=== PATIENT | male | born 1965 | race Caucasian/White ===

== ENCOUNTER 2021-07-06 19:53 | Emergency (ER) | payer BC ==
[2021-07-06] MEDS ORDERED: Zofran 4 MG/2 ML VIAL IV ONE (20:18)
[2021-07-06] MEDS ORDERED: Sodium Chloride 0.9% 1000 ML 1,000 ML IV STA (20:18)
[2021-07-06] MEDS ORDERED: TORAdol 30 mg Injection IV ONE (20:18)
[2021-07-06] MEDS ORDERED: Sodium Chloride 0.9% 1000 ML 1,000 ML ONE (20:21)
[2021-07-06] MEDS ORDERED: TORAdol 30 mg Injection ONE (20:21)
[2021-07-06] MEDS ORDERED: Zofran 4 MG/2 ML VIAL ONE (20:21)
--- NOTE | 2021-07-06 20:22 | ERPHSYRPT ---
- History of Present Illness Time Seen by Provider: 07/06/21 20:03 Historian: patient Exam Limitations: no limitations Patient Subjective Stated Complaint: "My side hurts real bad." Triage Nursing Assessment: Patient reported a two day onset of right sided flank pain that radiates to the RLQ. He reported noting blood in his urine earlier today 07/06/21. Patient reported past history of kidney stones. Reported one episode of vomiting when the pain was at its worst prior to coming to the ED. Denied fever at home. Last oral intake was at 1230 on 07/06/21 when he had [employer] for lunch. Since then, he has had two beers and "a lot of water.". Sym metrical chest expansion. Heart tones S1/S2 RRR without extra sounds. Lungs vesicular with adequate airflow and no adventitious sounds. Abdomen obese non- distended with bowel sounds present in all quadrants. No CVA tenderness. peripheral pulses +3 bilateral. Physician History: 56 years old male with history of hypertension, kidney stones presented in the ER with chief complaint of right flank pain with radiation to right lower quadrant/groin, constant, moderate to severe intensity sharp nature with associated hematuria, nausea and vomiting times once. No fever or chills reported. Timing/Duration: day(s) (2), constant, gradual onset, worse Activities at Onset: rest Quality: sharpness Abdominal Pain Onset Location: RLQ, flank Pain Radiation: groin Severity of Pain-Max: severe Severity of Pain-Current: moderate Modifying Factors: Worsens With: movement, urinating Associated Symptoms: nausea, vomiting, No fever/chills Previous symptoms: same symptoms as today Allergies/Adverse Reactions: No Known Drug Allergies Allergy (Unverified 07/06/21 20:02) Home Medications: Escitalopram Oxalate 20 mg PO DAILY 07/06/21 [History] Trazodone HCl 100 mg PO DAILY 07/06/21 [History] Hx Tetanus, Diphtheria Vaccination/Date Given: No Hx Influenza Vaccination/Date Given: Yes Hx Pneumococcal Vaccination/Date Given: No Travel Risk - International Travel Have you traveled outside of the country in past 3 weeks: No - Coronavirus Screening Are you exhibiting any of the following symptoms?: No Close contact with a COVID-19 positive Pt in past 14-21 Days: No - Vaccine Status Have you recieved a Covid-19 vaccination: Yes Physical Meteorologist: Moderna - Vaccination Dates Date of 2cond Vaccination (if applicable): 12/2020 - Review of Systems Constitutional: No Symptoms Eyes: No Symptoms Ears, Nose, & Throat: No Symptoms Respiratory: No Symptoms Cardiac: No Symptoms Abdominal/Gastrointestinal: Abdominal Pain, Nausea, Vomiting Genitourinary Symptoms: Hematuria Musculoskeletal: No Symptoms Skin: No Symptoms Neurological: No Symptoms Psychological: No Symptoms Endocrine: No Symptoms Hematologic/Lymphatic: No Symptoms - Past Medical History Pertinent Past Medical History: Yes Cardiac History: Hypertension Psycho-Social History: Anxiety - Past Surgical History Past Surgical History: Yes Gastrointestinal: Hemorrhoidectomy - Social History Smoking Status: Never smoker Exposure to second hand smoke: No Drug Use: none Patient Lives Alone: No - Nursing Vital Signs Nursing Vital Signs: Initial Vital Signs Pulse Rate 72 07/06/21 19:53 Respiratory Rate 16 07/06/21 19:53 Blood Pressure 150/110 07/06/21 19:53 O2 Sat by Pulse Oximetry 99 07/06/21 19:53 Pain Scale Pain Intensity 9 - Physical Exam General Appearance: no apparent distress, alert Eye Exam: PERRL/EOMI, eyes nml inspection Ears, Nose, Throat Exam: normal ENT inspection Neck Exam: normal inspection, supple, full range of motion Respiratory Exam: normal breath sounds, lungs clear Cardiovascular Exam: regular rate/rhythm, normal heart sounds Gastrointestinal/Abdomen Exam: soft, normal bowel sounds, tenderness (Right flank/right lower quadrant), No guarding Back Exam: normal inspection, normal range of motion Extremity Exam: normal inspection, normal range of motion Neurologic Exam: alert, oriented x 3, cooperative Skin Exam: normal color SpO2 Interpretation: normal SpO2: 99 O2 Delivery: Room Air Ordered Tests: Active Orders 24 hr Category Date Time Status IV Insertion STAT Care 07/06/21 20:18 Active NPO (ED) STAT Care 07/06/21 20:18 Active ABDOMEN AND PELVIS W/0 CONTRAS [CT] Stat Exams 07/06/21 20:18 Taken CBC W DIFF Stat Lab 07/06/21 20:25 Completed CMP Stat Lab 07/06/21 20:25 Completed LIPASE Stat Lab 07/06/21 20:25 Completed UA W/RFX UR CULTURE Stat Lab 07/06/21 20:21 Completed Medication Summary Discontinued Medications Generic Name Dose Route Start Last Admin Trade Name Freq PRN Reason Stop Dose Admin Hydromorphone HCl 0.5 mg 07/06/21 21:09 07/06/21 21:12 Hydromorphone 1 Mg/1ml Inj 1 Mg/Ml Syringe IV 07/06/21 21:10 0.5 mg STAT ONE Administration Hydromorphone HCl Confirm 07/06/21 21:12 Hydromorphone 1 Mg/1ml Inj 1 Mg/Ml Syringe Administered 07/06/21 21:13 Dose 1 mg .ROUTE .STK-MED ONE Sodium Chloride 1,000 mls @ 999 mls/hr 07/06/21 20:18 07/06/21 20:23 Sodium Chloride 0.9% 1000 Ml IV 07/06/21 21:18 999 mls/hr .Q1H1M STA Administration Sodium Chloride Confirm 07/06/21 20:21 Sodium Chloride 0.9% 1000 Ml Administered 07/06/21 20:22 Dose 1,000 mls @ ud .ROUTE .STK-MED ONE Ketorolac Tromethamine 30 mg 07/06/21 20:18 07/06/21 20:23 Ketorolac Tromethamine 30 Mg/Ml Inj IV 07/06/21 20:19 30 mg STAT ONE Administration Ketorolac Tromethamine Confirm 07/06/21 20:21 Ketorolac Tromethamine 30 Mg/Ml Inj Administered 07/06/21 20:22 Dose 30 mg .ROUTE .STK-MED ONE Ondansetron HCl 4 mg 07/06/21 20:18 07/06/21 20:23 Ondansetron Hcl 4 Mg/2 Ml Vial IV 07/06/21 20:19 4 mg STAT ONE Administration Ondansetron HCl Confirm 07/06/21 20:21 Ondansetron Hcl 4 Mg/2 Ml Vial Administered 07/06/21 20:22 Dose 4 mg .ROUTE .STK-MED ONE Lab/Rad Data: Laboratory Result Diagrams 07/06/21 20:25 07/06/21 20:25 Laboratory Results 07/06/21 07/06/21 07/06/21 Range/Units 20:25 20:25 20:21 WBC 10.4 (4.0-10.5) K/mm3 RBC 5.11 (4.1-5.6) M/mm3 Hgb 16.9 (12.5-18.0) gm/dl Hct 49.2 (42-50) % MCV 96.3 (78-100) fl MCH 33.1 H (26-32) pg MCHC 34.3 (32-36) g/dl RDW 14.5 H (11.5-14.0) % Plt Count 214 (150-450) K/mm3 MPV 9.2 (7.5-11.0) fl Gran % 44.7 (36.0-66.0) % Eos # (Auto) 0.13 (0-0.5) Absolute Lymphs (auto) 4.79 H (1.0-4.6) Absolute Monos (auto) 0.78 (0.0-1.3) Lymphocytes % 46.3 H (24.0-44.0) % Monocytes % 7.5 (0.0-12.0) % Eosinophils % 1.3 (0.00-5.0) % Basophils % 0.2 (0.0-0.4) % Absolute Granulocytes 4.63 (1.4-6.9) Basophils # 0.02 (0-0.4) Sodium 137 (137-145) mmol/L Potassium 4.3 (3.5-5.1) mmol/L Chloride 104 (98-107) mmol/L Carbon Dioxide 21 L (22-30) mmol/L Anion Gap 16.5 H (5-15) MEQ/L BUN 8 L (9-20) mg/dL Creatinine 0.80 (0.66-1.25) mg/dL Estimated GFR > 60.0 ML/MIN Glucose 96 (74-106) mg/dL Calcium 9.0 (8.4-10.2) mg/dL Total Bilirubin 0.60 (0.2-1.3) mg/dL AST 38 (17-59) U/L ALT 27 (0-50) U/L Alkaline Phosphatase 69 (38-126) U/L Serum Total Protein 8.0 (6.3-8.2) g/dL Albumin 4.5 (3.5-5.0) g/dL Lipase 98 (23-300) U/L Urine Color STRAW (YELLOW) Urine Appearance CLEAR (CLEAR) Urine pH 7.0 (5-6) Ur Specific [place] 1.002 (1.005-1.025) Urine Protein NEGATIVE (Negative) Urine Ketones NEGATIVE (NEGATIVE) Urine Blood NEGATIVE (0-5) Tyler/ul Urine Nitrite NEGATIVE (NEGATIVE) Urine Bilirubin NEGATIVE (NEGATIVE) Urine Urobilinogen NEGATIVE (0-1) mg/dL Ur Leukocyte Esterase NEGATIVE (NEGATIVE) Urine WBC (Auto) NONE (0-5) /HPF Urine RBC (Auto) NONE (0-2) /HPF U Epithel Cells (Auto) NONE (FEW) /HPF Urine Bacteria (Auto) NONE (NEGATIVE) /HPF Urine Culture Reflexed NO (NO) Urine Glucose NEGATIVE (NEGATIVE) mg/dL - Progress Progress: improved Progress Note: 07/06/21 21:34 Is given fluids and pain medication for symptomatic relief, on reevaluation feeling better. Acute abdomen work-up is negative. No UTI. Obtain CT abdomen pelvis without contrast which is grossly negative for any obstructive uropathy or other acute findings. No peritoneal signs on repeated evaluation. Recommended taking Tylenol ibuprofen and outpatient follow-up. Discussed signs symptoms of worsening needing return to ER which he seems understanding. Stable for d ischarge. Counseled pt/family regarding: lab results, diagnosis, need for follow-up, rad results - Departure Departure Disposition: Home Clinical Impression: Right flank pain Condition: Stable Critical Care Time: No Referrals: ASHLEY MILLER [NON-STAFF PHY W/O PRIVILEGES] - Follow up/PCP as directed Instructions: Kidney Stones (DC) Additional Instructions: Follow-up with your primary care physician for reevaluation in 1 to 2 days. Return to ER for worsening pain, difficulty urination, blood in the urine, fever chills etc. Take Tylenol/ibuprofen as needed. Prescriptions: Ibuprofen 600 mg PO Q6HPRN PRN 10 Days #20 tablet PRN Reason: Pain
[2021-07-06 20:37] LABS: Absolute Neutrophil Ct (ANC) 4.63 (1.4-6.9); BASOPHIL % 0.2 % (0.0-0.4); Basophil (Absolute #) 0.02 (0-0.4); Eosinophil % 1.3 % (0.00-5.0); Eosinophil (Absolute #) 0.13 (0-0.5); Hematocrit 49.2 % (42-50); Hemoglobin 16.9 gm/dl (12.5-18.0); Lymphocyte (Absolute #) 4.79 (1.0-4.6); Lymphocytes % 46.3 % (24.0-44.0); Mean Cell Volume 96.3 fl (78-100); Mean Corpuscular Hemoglobin 33.1 pg (26-32); Mean Corpuscular Hgb Concent. 34.3 g/dl (32-36); Mean Platelet Volume 9.2 fl (7.5-11.0); Monocyte (Absolute #) 0.78 (0.0-1.3); Monocytes % 7.5 % (0.0-12.0); Neutrophil % 44.7 % (36.0-66.0); Platelet Count 214 K/mm3 (150-450); Red Blood Count 5.11 M/mm3 (4.1-5.6); Red Cell Distribution Width 14.5 % (11.5-14.0); White Blood Count 10.4 K/mm3 (4.0-10.5)
[2021-07-06 20:46] LABS: Appearance CLEAR (CLEAR); Bilirubin NEGATIVE (NEGATIVE); Blood NEGATIVE Ery/ul (0-5); Glucose NEGATIVE (NEGATIVE); Ketones NEGATIVE (NEGATIVE); Leukocyte Esterase NEGATIVE (NEGATIVE); Nitrite NEGATIVE (NEGATIVE); Protein,Urine Dip NEGATIVE (Negative); Specific Gravity 1.002 (1.005-1.025); Urobilinogen NEGATIVE mg/dL (0-1)
[2021-07-06 20:49] LABS: ALBUMIN 4.5 g/dL (3.5-5.0); ALKALINE PHOSPHATASE 69 U/L (38-126); ANION GAP 16.5 MEQ/L (5-15); BLOOD UREA NITROGEN 8 mg/dL (9-20); CHLORIDE 104 mmol/L (98-107); Carbon Dioxide 21 mmol/L (22-30); EST GLOMERULAR FILTRATION RATE > 60.0 ML/MIN; Glucose 96 mg/dL (74-106); LIPASE 98 U/L (23-300); Potassium 4.3 mmol/L (3.5-5.1); SGOT/AST 38 U/L (17-59); SGPT/ALT 27 U/L (0-50); SODIUM 137 mmol/L (137-145)
[2021-07-06] MEDS ORDERED: Hydromorphone 1 mg/ml Injection IV ONE (21:09)
[2021-07-06] MEDS ORDERED: Hydromorphone 1 mg/ml Injection ONE (21:12)
--- NOTE | 2021-07-07 09:37 | XRAY ---
Indication: Right flank/right lower quadrant pain 2 days. Hematuria. History renal stones. Multiple contiguous axial images obtained through the abdomen and pelvis without contrast using renal stone protocol. Comparison: None Lung bases are clear. Heart not enlarged. Inferior right kidney demonstrates nonobstructing punctate calculus. No renal calculus or evidence for obstructive uropathy on the left. Noncontrasted stomach and bowel loops are nonobstructed with normal air-filled appendix. Moderate scattered left hemicolon/sigmoid diverticulosis without diverticulitis. No free fluid/air. Remaining liver, gallbladder, pancreas, spleen, adrenal glands, kidneys, ureters, and bladder are unremarkable for noncontrast exam. Minimal aortoiliac calcifications without AAA. Osseous structures intact. Small fatty inguinal hernias, right greater than left. Impression: 1. Nonobstructing right renal micro-calculus. 2. Incidental colonic diverticulosis and bilateral fatty inguinal hernias. 3. Remaining CT abdomen/pelvis without contrast exam is negative.
== END 2021-07-06 21:44 | disposition home or self-care (01) ==
LOC: ED 19:53
DX: R10.31 Right lower quadrant pain (principal); R31.9 Hematuria, unspecified; R11.2 Nausea with vomiting, unspecified; I10 Essential (primary) hypertension; Z87.442 Personal history of urinary calculi
CPT/HCPCS: 36000; 36415; 74176; 80053; 81001; 83690; 85025; 96374; 96375; 99284; J1170; J1885; J2405

== ENCOUNTER 2023-08-30 15:08 | Emergency (ER) | payer BC ==
[2023-08-30 15:21] VITALS: TEMP 97.7
[2023-08-30] MEDS ORDERED: GI COCKTAIL 45 ML (Maalox/Lidocaine) PO ONE (15:29)
[2023-08-30] MEDS ORDERED: Sodium Chloride 0.9% 1000 ML 1,000 ML IV STA (15:29)
[2023-08-30] MEDS ORDERED: PROTONIX 40 MG IV IV ONE ×2 (15:29→15:57)
[2023-08-30] MEDS ORDERED: MORPHINE SULFATE 4 MG INJ IV ONE (15:29)
[2023-08-30] MEDS ORDERED: Zofran 4 MG/2 ML VIAL IV ONE (15:29)
--- NOTE | 2023-08-30 15:33 | ERPHSYRPT ---
- History of Present Illness Time Seen by Provider: 08/30/23 15:21 Historian: patient Exam Limitations: no limitations Patient Subjective Stated Complaint: Pt states "I am having horrible cramping and burning in my belly. It is coming in waves. I have been drinking quite a bit of coffee and grape juice today" Triage Nursing Assessment: Pt presented alert and oriented X 3, skin pwd. Pt ambulates with an upright steady gait, able to sepak in clear full sentences pt in no apparent respiratory distress Physician History: 58-year-old male with history of GERD on omeprazole, hypertension presented in the ER with chief complaint of upper abdominal/epigastric area burning/cramping pain intermittently for the last 3 to 4 hours, aggravation with oral intake with associated nausea but no vomiting. Denies any chest pain palpitations or shortness of breath. Patient reports 8/10 intensity intermittently which gets better on its own. Allergies/Adverse Reactions: No Known Drug Allergies Allergy (Verified 08/30/23 15:21) Home Medications: Enalapril Maleate [Vasotec] 5 mg PO DAILY 08/30/23 [History] Naltrexone HCl 50 mg PO DAILY 08/30/23 [History] Quetiapine Fumarate 100 mg [Seroquel 100 MG] 100 mg PO DAILY 08/30/23 [History] Trazodone HCl 150 mg PO DAILY 08/30/23 [History] Hx Tetanus, Diphtheria Vaccination/Date Given: Yes Hx Influenza Vaccination/Date Given: Yes Hx Pneumococcal Vaccination/Date Given: No Immunizations Up to Date: No Travel Risk - International Travel Have you traveled outside of the country in past 3 weeks: No - Coronavirus Screening Are you exhibiting any of the following symptoms?: No Close contact with a COVID-19 positive Pt in past 14-21 Days: No - Vaccine Status Have you recieved a Covid-19 vaccination: Yes Manager Books: Moderna - Vaccination Dates Date of 2cond Vaccination (if applicable): 12/2020 - Review of Systems Constitutional: No Symptoms Eyes: No Symptoms Ears, Nose, & Throat: No Symptoms Respiratory: No Symptoms Cardiac: No Symptoms Abdominal/Gastrointestinal: Abdominal Pain, Nausea Genitourinary Symptoms: No Symptoms Musculoskeletal: No Symptoms Neurological: No Symptoms Endocrine: No Symptoms Hematologic/Lymphatic: No Symptoms Immunological/Allergic: No Symptoms - Past Medical History Pertinent Past Medical History: Yes Cardiac History: Hypertension GI Medical History: GERD Psycho-Social History: Anxiety - Past Surgical History Past Surgical History: Yes Gastrointestinal: Hemorrhoidectomy Other Surgical History: deviated septum - Social History Smoking Status: Never smoker Exposure to second hand smoke: No Drug Use: none Patient Lives Alone: No - Nursing Vital Signs Nursing Vital Signs: Initial Vital Signs Temperature 97.7 F 08/30/23 15:16 Pulse Rate 76 08/30/23 15:16 Respiratory Rate 22 08/30/23 15:16 Blood Pressure 141/99 08/30/23 15:16 O2 Sat by Pulse Oximetry 96 08/30/23 15:16 Pain Scale Pain Intensity 0 - Physical Exam General Appearance: no apparent distress, alert Eye Exam: PERRL/EOMI Ears, Nose, Throat Exam: normal ENT inspection Neck Exam: normal inspection, supple, full range of motion Respiratory Exam: normal breath sounds, lungs clear Cardiovascular Exam: regular rate/rhythm, normal heart sounds Gastrointestinal/Abdomen Exam: soft, normal bowel sounds, tenderness (Epigastric /periumbilical area with minimal guarding but no rebound tenderness. No right upper quadrant tenderness.) Extremity Exam: normal inspection, normal range of motion Neurologic Exam: alert, oriented x 3, cooperative Skin Exam: normal color SpO2 Interpretation: normal SpO2: 96 O2 Delivery: Room Air - Course EKG Interpreted by Me: RATE, Sinus Rhythm, NORMAL AXIS, NORMAL INTERVALS, NORMAL QRS Ordered Tests: Active Orders 24 hr Category Date Time Status EKG-ER Only STAT Care 08/30/23 15:29 Completed IV Insertion STAT Care 08/30/23 15:29 Completed NPO (ED) STAT Care 08/30/23 15:29 Completed ABDOMEN AND PELVIS W CONTRAST [CT] Stat Exams 08/30/23 15:29 Completed CBC W DIFF Stat Lab 08/30/23 16:00 Completed CMP Stat Lab 08/30/23 16:00 Completed LIPASE Stat Lab 08/30/23 16:00 Completed Lactic Acid Stat Lab 08/30/23 15:50 Completed Lactic Acid Stat Lab 08/30/23 18:08 Received TROPONIN Q4H Lab 08/30/23 16:00 Completed TROPONIN Q4H Lab 08/30/23 19:27 Received TROPONIN Q4H Lab 08/30/23 23:30 Ordered UA W/RFX UR CULTURE Stat Lab 08/30/23 15:30 Completed Medication Summary Discontinued Medications Generic Name Dose Route Start Last Admin Trade Name Diana PRN Reason Stop Dose Admin Al Hydrox/Mg Hydrox/Simethicone Confirm 08/30/23 15:59 Mag Hydrox/Al Hydrox/Simeth 30 Ml Udcup Administered 08/30/23 16:00 Dose 30 ml .ROUTE .STK-MED ONE Sodium Chloride 1,000 mls @ 999 mls/hr 08/30/23 15:29 08/30/23 17:52 Sodium Chloride 0.9% 1000 Ml IV 08/30/23 16:29 Infused .Q1H1M STA Infusion Sodium Chloride Confirm 08/30/23 15:59 Sodium Chloride 0.9% 1000 Ml Administered 08/30/23 16:00 Dose 1,000 mls @ ud .ROUTE .STK-MED ONE Lidocaine HCl Confirm 08/30/23 15:58 Lidocaine Hcl 2% Viscous 15 Ml Udcup Administered 08/30/23 15:59 Dose 15 ml .ROUTE .STK-MED ONE Magnesium Hydroxide 45 ml 08/30/23 15:29 08/30/23 16:23 Mag Hydrx/Alum Hyd/Simeth/Lido 45 Ml Bottle PO 08/30/23 15:30 45 ml STAT ONE Administration Morphine Sulfate 4 mg 08/30/23 15:29 08/30/23 16:11 Morphine Sulfate 4 Mg/Ml Injection IV 08/30/23 15:30 4 mg STAT ONE Administration Morphine Sulfate Confirm 08/30/23 15:58 Morphine Sulfate 4 Mg/Ml Injection Administered 08/30/23 15:59 Dose 4 mg .ROUTE .STK-MED ONE Ondansetron HCl 4 mg 08/30/23 15:29 08/30/23 16:08 Ondansetron Hcl 4 Mg/2 Ml Vial IV 08/30/23 15:30 4 mg STAT ONE Administration Ondansetron HCl Confirm 08/30/23 15:57 Ondansetron Hcl 4 Mg/2 Ml Vial Administered 08/30/23 15:58 Dose 4 mg .ROUTE .STK-MED ONE Pantoprazole Sodium 40 mg 08/30/23 15:29 08/30/23 16:16 Pantoprazole 40 Mg Vial IV 08/30/23 15:30 40 mg STAT ONE Administration Pantoprazole Sodium Confirm 08/30/23 15:57 Pantoprazole 40 Mg Vial Administered 08/30/23 15:58 Dose 40 mg IV .K-MED ONE Lab/Rad Data: Laboratory Result Diagrams 08/30/23 16:00 08/30/23 16:00 Laboratory Results 08/30/23 08/30/23 08/30/23 Range/Units 16:00 16:00 16:00 WBC 10.0 (4.0-10.5) x10^3/uL RBC 5.19 (4.1-5.6) x10^6/uL Hgb 16.9 (12.5-18.0) g/dL Hct 50.2 H (42-50) % MCV 96.7 (78-100) fL MCH 32.6 H (26-32) pg MCHC 33.7 (32-36) g/dL RDW 14.9 H (11.5-14.0) % Plt Count 216 (150-450) x10^3/uL MPV 10.0 (7.5-11.0) fL Gran % 68.4 H (36.0-66.0) % Immature Gran % (Auto) 0.4 (0.00-0.4) % Nucleat RBC Rel Count 0.0 (0.00-0.1) % Eos # (Auto) 0.10 (0-0.5) x10^3/uL Immature Gran # (Auto) 0.04 H (0.00-0.03) x10^3u/L Absolute Lymphs (auto) 2.34 (1.0-4.6) x10^3/uL Absolute Monos (auto) 0.66 (0.0-1.3) x10^3/uL Absolute Nucleated RBC 0.00 (0.00-0.01) x10^3u/L Lymphocytes % 23.4 L (24.0-44.0) % Monocytes % 6.6 (0.0-12.0) % Eosinophils % 1.0 (0.00-5.0) % Basophils % 0.2 (0.0-0.4) % Absolute Granulocytes 6.83 (1.4-6.9) x10^3/uL Basophils # 0.02 (0-0.4) x10^3/uL Sodium 138 (137-145) mmol/L Potassium 4.1 (3.5-5.1) mmol/L Chloride 104 (98-107) mmol/L Carbon Dioxide 27 (22-30) mmol/L Anion Gap 11.5 (5-15) MEQ/L BUN 4 L (9-20) mg/dL Creatinine 0.77 (0.66-1.25) mg/dL Estimated GFR 104.4 ML/MIN Glucose 94 (74-106) mg/dL Lactic Acid (0.4-2.0) Calcium 9.8 (8.4-10.2) mg/dL Total Bilirubin 0.70 (0.2-1.3) mg/dL AST 41 (17-59) U/L ALT 40 (0-50) U/L Alkaline Phosphatase 90 (38-126) U/L Troponin I < 0.012 (0.000-0.034) ng/mL Serum Total Protein 8.2 (6.3-8.2) g/dL Albumin 4.3 (3.5-5.0) g/dL Lipase 92 (23-300) U/L Urine Color (Yellow) Urine Appearance (Clear) Urine pH (4.6-8.0) Ur Specific [place] (1.005-1.030) Urine Protein (Negative) Urine Glucose (UA) (Negative) mg/dL Urine Ketones (Negative) Urine Blood (Negative) Urine Nitrite (Negative) Urine Bilirubin (Negative) Urine Urobilinogen (0.2) mg/dL Ur Leukocyte Esterase (Negative) U Hyaline Cast (Auto) (0-2) /LPF Urine Microscopic RBC (0-5) /HPF Urine Microscopic WBC (0-5) /HPF Ur Epithelial Cells (None Seen) /HPF Urine Bacteria (None Seen) /HPF Urine Culture Reflexed (NO) 08/30/23 08/30/23 Range/Units 15:50 15:30 WBC (4.0-10.5) x10^3/uL RBC (4.1-5.6) x10^6/uL Hgb (12.5-18.0) g/dL Hct (42-50) % MCV (78-100) fL MCH (26-32) pg MCHC (32-36) g/dL RDW (11.5-14.0) % Plt Count (150-450) x10^3/uL MPV (7.5-11.0) fL Gran % (36.0-66.0) % Immature Gran % (Auto) (0.00-0.4) % Nucleat RBC Rel Count (0.00-0.1) % Eos # (Auto) (0-0.5) x10^3/uL Immature Gran # (Auto) (0.00-0.03) x10^3u/L Absolute Lymphs (auto) (1.0-4.6) x10^3/uL Absolute Monos (auto) (0.0-1.3) x10^3/uL Absolute Nucleated RBC (0.00-0.01) x10^3u/L Lymphocytes % (24.0-44.0) % Monocytes % (0.0-12.0) % Eosinophils % (0.00-5.0) % Basophils % (0.0-0.4) % Absolute Granulocytes (1.4-6.9) x10^3/uL Basophils # (0-0.4) x10^3/uL Sodium (137-145) mmol/L Potassium (3.5-5.1) mmol/L Chloride (98-107) mmol/L Carbon Dioxide (22-30) mmol/L Anion Gap (5-15) MEQ/L BUN (9-20) mg/dL Creatinine (0.66-1.25) mg/dL Estimated GFR ML/MIN Glucose (74-106) mg/dL Lactic Acid 1.9 (0.4-2.0) Calcium (8.4-10.2) mg/dL Total Bilirubin (0.2-1.3) mg/dL AST (17-59) U/L ALT (0-50) U/L Alkaline Phosphatase (38-126) U/L Troponin I (0.000-0.034) ng/mL Serum Total Protein (6.3-8.2) g/dL Albumin (3.5-5.0) g/dL Lipase (23-300) U/L Urine Color Yellow (Yellow) Urine Appearance Clear (Clear) Urine pH 5.5 (4.6-8.0) Ur Specific [place] <=1.005 (1.005-1.030) Urine Protein Negative (Negative) Urine Glucose (UA) Negative (Negative) mg/dL Urine Ketones Negative (Negative) Urine Blood Negative (Negative) Urine Nitrite Negative (Negative) Urine Bilirubin Negative (Negative) Urine Urobilinogen 0.2 (0.2) mg/dL Ur Leukocyte Esterase Negative (Negative) U Hyaline Cast (Auto) NONE SEEN (0-2) /LPF Urine Microscopic RBC 0-2 (0-5) /HPF Urine Microscopic WBC 0-2 (0-5) /HPF Ur Epithelial Cells None Seen (None Seen) /HPF Urine Bacteria None Seen (None Seen) /HPF Urine Culture Reflexed NO (NO) - Progress Progress: improved, re-examined Progress Note: 08/30/23 19:18 58-year-old is evaluated for upper abdominal pain sudden onset few hours ago. He is given IV fluids along with symptomatic care morphine/Protonix/GI cocktail and Zofran, on reevaluation he is pain-free. No peritoneal signs on repeated evaluation. Workup showed normal white count, fairly unremarkable chemistries, no UTI. CT abdomen pelvis with contrast is negative for viscus perforation, acute pancreatitis, cholecystitis, colitis, obstruction. EKG is normal sinus rhythm with no acute ischemic changes and negative troponins. I believe patient has gastritis/GERD and will continue with Protonix and Carafate to go home and outpatient follow-up with primary care and possible GI referral for EGD for further evaluation of this pain. I do not think it is cardiac. Do not think needs any other workup and is stable for discharge with outpatient follow-up. I have shared the results of workup with patient and plan of discharge and outpatient follow-up. Discussed signs symptoms of worsening needing return to ER which she seems understanding. Able for discharge Counseled pt/family regarding: lab results, diagnosis, need for follow-up, rad results Medical Desision Making - Diagnostic Testing Diagnostic test were ordered, analyzed, and reviewed by me: Yes Radiological Interpretation: Reviewed by me - Risk of complications The pt has a mod risk of morbidity or mortality based on: Need for prescription drug management - Departure Departure Disposition: Home Clinical Impression: Epigastric pain Condition: Stable Critical Care Time: No Referrals: [facility] [employer] [Primary Care Provider] - Follow up/PCP as directed Instructions: Severe Abdominal Pain, Adult (DC), Gastritis (DC) Additional Instructions: Do not take spicy/oily food. Follow-up with primary care for reevaluation and may need referral for GI for further evaluation with upper GI endoscopy. Return to ER for worsening pain, nausea vomiting/abdominal pain etc. Take Tylenol as needed. Do not take NSAIDs like ibuprofen/Aleve etc. Prescriptions: Sucralfate 1 gm [Carafate 1 GM] 1 g PO ACHS #20 tablet PANTOPRAZOLE 40 mg Tablet [Protonix 40MG Tablet] 40 mg PO QAM #30 tab
[2023-08-30 15:52] LABS: Appearance Clear (Clear); Bacteria None Seen /HPF (None Seen); Bilirubin Negative (Negative); Blood Negative (Negative); Epithelial Cells None Seen /HPF (None Seen); Glucose, Urine Negative (Negative); Hyaline Casts NONE SEEN /LPF (0-2); Ketones Negative (Negative); Leukocyte Esterase Negative (Negative); Nitrite Negative (Negative); Ph 5.5 (4.6-8.0); Protein,Urine Dip Negative (Negative); RBC 0-2 /HPF (0-5); Specific Gravity <=1.005 (1.005-1.030); Urobilinogen 0.2 mg/dL (0.2); WBC 0-2 /HPF (0-5)
[2023-08-30 15:55] LABS: ADD URINE CULTURE? NO (NO)
[2023-08-30] MEDS ORDERED: Zofran 4 MG/2 ML VIAL ONE (15:57)
[2023-08-30] MEDS ORDERED: MORPHINE SULFATE 4 MG INJ ONE (15:58)
[2023-08-30] MEDS ORDERED: XYLOCAINE VISCOUS 2% 15 ML CUP ONE (15:58)
[2023-08-30] MEDS ORDERED: MAALOX ES 30 ML UNIT DOSE ONE (15:59)
[2023-08-30] MEDS ORDERED: Sodium Chloride 0.9% 1000 ML 1,000 ML ONE (15:59)
[2023-08-30 16:13] LABS: Absolute Neutrophil Ct (ANC) 6.83 x10^3/uL (1.4-6.9); BASOPHIL % 0.2 % (0.0-0.4); Basophil (Absolute #) 0.02 x10^3/uL (0-0.4); Hematocrit 50.2 % (42-50); Hemoglobin 16.9 g/dL (12.5-18.0); IMMATURE GRAN # 0.04 x10^3u/L (0.00-0.03); IMMATURE GRAN % 0.4 % (0.00-0.4); Lymphocyte (Absolute #) 2.34 x10^3/uL (1.0-4.6); Lymphocytes % 23.4 % (24.0-44.0); Mean Cell Volume 96.7 fL (78-100); Mean Corpuscular Hemoglobin 32.6 pg (26-32); Mean Corpuscular Hgb Concent. 33.7 g/dL (32-36); Monocyte (Absolute #) 0.66 x10^3/uL (0.0-1.3); Monocytes % 6.6 % (0.0-12.0); Neutrophil % 68.4 % (36.0-66.0); Platelet Count 216 x10^3/uL (150-450); Red Blood Count 5.19 x10^6/uL (4.1-5.6); Red Cell Distribution Width 14.9 % (11.5-14.0)
[2023-08-30 16:28] LABS: ALBUMIN 4.3 g/dL (3.5-5.0); ANION GAP 11.5 MEQ/L (5-15); BILIRUBIN,TOTAL 0.7 mg/dL (0.2-1.3); Calcium 9.8 mg/dL (8.4-10.2); Creatinine 1 0.77 mg/dL (0.66-1.25); EST GLOMERULAR FILTRATION RATE 104.4 ML/MIN; Potassium 4.1 mmol/L (3.5-5.1); Total Protein 8.2 g/dL (6.3-8.2)
--- NOTE | 2023-08-30 18:36 | XRAY ---
CLINICAL HISTORY:UPPER ABD PAIN COMPARISON:None. TECHNIQUE:A CT scan of the abdomen and pelvis was performed with & without IV contrast. 80 ml of Inj. Isovue 370 mg was administered as an intravenous contrast agent. Bowel loops are opacified by prior administration of oral contrast. Coronal and sagittal reconstructive images were also obtained. CTDI: 13.92 mGy, DLP: 814.43 mGy*cm FINDINGS: Scan through the lower chest reveals a subtle orthostatic subpleural effect. Abdomen: The liver is in the upper size and measures 17 cm, shows mild decreased attenuation. No focal or diffuse parenchymal abnormality. The portal vein, intrahepatic biliary radicals, and the bile ducts are normal. The gallbladder is distended and shows no definite stones. There is no evidence of wall thickening/ pericholecystic collection. The spleen, pancreas, and adrenal glands are unremarkable. The kidneys are normal in size and shape. No calculi or hydronephrosis. The stomach is unremarkable. There is no evidence of significant mesenteric or retroperitoneal lymph node enlargement. Small fat-containing umbilical hernia. No free fluid. Pelvis: The urinary bladder is unremarkable. Multiple small diverticula are noted in the entire colon without CT evidence of acute diverticulitis. No evidence of bowel obstruction. The appendix is visualized and it shows a preserved appearance. The prostate is unremarkable. The pelvic vasculature is unremarkable. No evidence of pelvic lymphadenopathy. There are fat-filled inguinal hernias bilaterally. No definite bony abnormalities could be depicted. IMPRESSION: 1. Grade 1 Hepatic steatosis. 2. Pancolonic Diverticulosis without evidence of diverticulitis. 3. No acute abdominopelvic abnormality. Electronically Signed by: Aisha Bazan MD. (08/30/2023 18:31:56 EST)
[2023-08-30 18:47] VITALS: RESP 16
[2023-08-30 19:13] VITALS: BP 127/100; PULSE 83
[2023-08-30 19:22] VITALS: O2SAT 96
== END 2023-08-30 19:34 | disposition home or self-care (01) ==
LOC: ED 15:08
DX: R10.13 Epigastric pain (principal); R11.0 Nausea; I10 Essential (primary) hypertension; Z79.899 Other long term (current) drug therapy
CPT/HCPCS: 36000; 36415; 74177; 80053; 81001; 83605; 83690; 84484; 85025; 93005; 96360; 96374; 96375; 99284; J2270; J2405; A9270-GY

== ENCOUNTER 2023-10-29 21:58 | Emergency (ER) | payer BC ==
[2023-10-29 22:11] VITALS: RESP 18; TEMP 98
--- NOTE | 2023-10-29 22:39 | ERPHSYRPT ---
- History of Present Illness Time Seen by Provider: 10/29/23 22:25 Source: patient Exam Limitations: no limitations Patient Subjective Stated Complaint: rt side tooth pain/swelling from root canal on 10/20/23 Triage Nursing Assessment: pt ambulated into ER without diff. Pt had a root canal on 10/20/23 and has had increased pain and swelling to left jaw area since 10/26/23. Pt is currently taking augmentin and finished hydrocodone today. Physician History: Patient is a 58-year-old male currently being treated by dentist for root canal presents to our ED with left lower jaw pain. Patient was prescribed [place] for p ain control. However patient states the [place] has not been working. We observed that patient is on naltrexone. Patient has been taking naltrexone daily at night along with the [place] which explains why the [place] did not improve patient's pain. Patient's dental pain is at tooth #17. No interval trauma. No fever no no headache. Symptoms are mild to moderate in intensity. No specific worsening or improving factors. Patient voices no other complaints or concerns at this time. Portions of this note were created with voice recognition technology. There may be grammatical, spelling, punctuation or sound alike errors Timing/Duration: today Severity: moderate Modifying Factors: Improves With: other (Mastication palpation to the involved tooth) Associated Symptoms: denies symptoms Allergies/Adverse Reactions: No Known Drug Allergies Allergy (Verified 10/29/23 22:11) Home Medications: Enalapril Maleate [Vasotec] 5 mg PO DAILY 08/30/23 [History] Naltrexone HCl 50 mg PO DAILY 08/30/23 [History] Quetiapine Fumarate 100 mg [Seroquel 100 MG] 100 mg PO DAILY 08/30/23 [History] Trazodone HCl 100 mg PO DAILY 08/30/23 [History] Amoxicillin/Potassium Clav [Amox-Clav 500-125 mg Tablet] 1 tab PO TID 10/29/23 [History] Hx Tetanus, Diphtheria Vaccination/Date Given: Yes Hx Influenza Vaccination/Date Given: Yes Hx Pneumococcal Vaccination/Date Given: No Travel Risk - International Travel Have you traveled outside of the country in past 3 weeks: No - Coronavirus Screening Are you exhibiting any of the following symptoms?: No Close contact with a COVID-19 positive Pt in past 14-21 Days: No - Vaccine Status Have you recieved a Covid-19 vaccination: Yes Acquisition Analyst: [employer] - Vaccination Dates Date of 2cond Vaccination (if applicable): . - Review of Systems Constitutional: No Symptoms, No Fever, No Chills Eyes: No Symptoms Ears, Nose, & Throat: No Symptoms Respiratory: No Symptoms, No Cough, No Dyspnea Cardiac: No Symptoms, No Chest Pain, No Edema, No Syncope Abdominal/Gastrointestinal: No Symptoms, No Abdominal Pain, No Nausea, No Vomiting, No Diarrhea Genitourinary Symptoms: No Symptoms, No Dysuria Musculoskeletal: No Symptoms, No Back Pain, No Neck Pain Skin: No Symptoms, No Rash Neurological: No Symptoms, No Dizziness, No Focal Weakness, No Sensory Changes Psychological: No Symptoms Endocrine: No Symptoms Hematologic/Lymphatic: No Symptoms Immunological/Allergic: No Symptoms All Other Systems: Reviewed and Negative - Past Medical History Pertinent Past Medical History: Yes Cardiac History: Hypertension GI Medical History: GERD Psycho-Social History: Anxiety - Past Surgical History Past Surgical History: Yes Gastrointestinal: Hemorrhoidectomy Other Surgical History: deviated septum, colonoscopy - Social History Smoking Status: Former smoker Exposure to second hand smoke: No Drug Use: none Patient Lives Alone: No - Nursing Vital Signs Nursing Vital Signs: Initial Vital Signs Temperature 98.0 F 10/29/23 22:08 Pulse Rate 64 10/29/23 22:08 Respiratory Rate 18 10/29/23 22:08 Blood Pressure 149/82 10/29/23 22:08 O2 Sat by Pulse Oximetry 98 10/29/23 22:08 Pain Scale Pain Intensity 8 - Physical Exam General Appearance: no apparent distress, alert Eye Exam: PERRL/EOMI, eyes nml inspection Ears, Nose, Throat Exam: normal ENT inspection, TMs normal, pharynx normal, moist mucous membranes Neck Exam: normal inspection, non-tender, supple, full range of motion Respiratory Exam: normal breath sounds, lungs clear, airway intact, No respiratory distress Cardiovascular Exam: regular rate/rhythm, normal heart sounds, normal peripheral pulses Gastrointestinal/Abdomen Exam: soft, normal bowel sounds, No tenderness, No mass Back Exam: normal inspection, normal range of motion, No CVA tenderness, No vertebral tenderness Extremity Exam: normal inspection, normal range of motion, pelvis stable Neurologic Exam: alert, oriented x 3, cooperative, normal mood/affect, sensation nml, No motor deficits Skin Exam: normal color, warm, dry, No rash Lymphatic Exam: No adenopathy SpO2 Interpretation: normal SpO2: 98 O2 Delivery: Room Air - Course Nursing assessment & vital signs reviewed: Yes Ordered Tests: Medication Summary Discontinued Medications Generic Name Dose Route Start Last Admin Trade Name Diana PRN Reason Stop Dose Admin Hydrocodone Bitart/Acetaminophen 4 tab 10/29/23 22:30 Hydrocodone/Apap 5/325 1 Tab Tablet PO 10/29/23 22:31 SENT HOME W/ PATIENT ONE Ketorolac Tromethamine 60 mg 10/29/23 22:30 Ketorolac Tromethamine 30 Mg/Ml Inj IM 10/29/23 22:31 STAT ONE - Progress Progress: improved Progress Note: 58-year-old male presents to our ED for evaluation of pain postroot canal. Patient states his [place] pill has not been working but patient has been taking naltrexone along with it. This explains why the [place] has not been effective. Physical exam reveals some tenderness at tooth #17. This is the location of his root canal. There is no active infection patient is currently on Augmentin. Patient received a 60 mg dose of Toradol. A prescription for [place] forwarded to patient's pharmacy with patient advised to discontinue the naltrexone at least while on the [place] for pain relief pain relief. Patient agrees to do so. Patient has a follow-up appointment with his dentist on Friday. Patient resting comfortably. He has no other complaints. Will discharge home. Patient voices no other complaints or concerns at this time. Portions of this note were created with voice recognition technology. There may be grammatical, spelling, punctuation or sound alike errors Complexity of problem addressed is moderate acute complicated No critical care time Complexity of data reviewed and analyzed is none. No specialized testing ordered. Diagnosis made based on history and physical exam Risk of complication and or risk of morbidity/mortality of patient management is moderate. Patient received IM Toradol. Patient also received [place] for home a s well as a prescription for [place]. Vital stable. Time spent to discharge patient is approximately 20 minutes. Plan of care established for shared decision making. No social determinants of health present impede follow-up. Portions of this note were created with voice recognition technology. There may be grammatical, spelling, punctuation or sound alike errors 03/06/24 22:45 Counseled pt/family regarding: diagnosis, need for follow-up - Departure Departure Disposition: Home Clinical Impression: Pain, dental Condition: Stable Critical Care Time: No Referrals: [facility] [Primary Care Provider] - Follow up/PCP as directed Additional Instructions: Discharge/Care Plan LEONA MONACO was seen on 10/29/23 in the Emergency Room. The patient was counseled regarding Diagnosis,Lab results, Imaging studies, need for follow up and when to return to the Emergency Room. Prescriptions given: Discharge Note I have spoken with the patient and/or caregivers. I have explained the patient's condition, diagnosis and treatment plan based on the information available to me at this time. I have answered the patient's and/or caregiver's questions and addressed any concerns. The patient and/or caregivers have as good understanding of the patient's diagnosis, condition and treatment plan as can be expected at this point. The vital signs have been stable. The patient's condition is stable and appropriate for discharge from the emergency department. The patient will pursue further outpatient evaluation with the primary care physician or other designated or consulting physician as outlined in the discharge instructions. The patient and/or caregivers are agreeable to this plan of care and follow-up instructions have been explained in detail. The patient and/or caregivers have received these instruction. The patient/and or caregivers are aware that any significant change in condition or worsening of symptoms should prompt an immediate return to this or the closest emergency department or call 911. Prescriptions: Hydrocodone/APAP 5/325 [[place] 5/325 mg] 1 each PO Q6H PRN PRN #10 tablet MDD 4 PRN Reason: Pain Ketorolac Trometh 10 mg Tab [TORAdol 10 MG TABLET] 10 mg PO TID 5 Days #15 tablet
[2023-10-29] MEDS ORDERED: NORCO 5/325 MG ONE (22:43)
[2023-10-29] MEDS ORDERED: TORAdol 30 mg Injection ONE (22:43)
[2023-10-29] MEDS: TORAdol 30 mg Injection IM ONE (22:47)
[2023-10-29] MEDS: NORCO 5/325 MG PO ONE (22:51)
[2023-10-29 23:00] VITALS: BP 122/79; PULSE 57; O2SAT 97
== END 2023-10-29 23:00 | disposition home or self-care (01) ==
LOC: ED 21:58
DX: K08.89 Other specified disorders of teeth and supporting structures (principal); Z20.828 Contact with and (suspected) exposure to other viral communicable diseases
CPT/HCPCS: 96372; 99282; J1885; A9270-GY